=== PATIENT | female | born 1965 | race Caucasian/White ===

== ENCOUNTER → 2020-02-29 | Day surgery (SDC) | payer OTHER | END | disposition home or self-care (01) | LOC: FMAMMOTONE 10:30 | PROVIDERS: ATTEND Surgery | PROC: 0HBU3ZX Excision of Left Breast, Percutaneous Approach, Diagnostic (ICD-10-PCS; principal; 2020-02-29) | DX: N60.32 Fibrosclerosis of left breast (principal); R92.8 Other abnormal and inconclusive findings on diagnostic imaging of breast | CPT/HCPCS: 19081; A4648 ==